=== PATIENT | female | born 1970 | race Caucasian/White ===

== ENCOUNTER 2019-01-28 22:18 | Emergency (ER) | payer OTHER ==
[~2019-01-28] VITALS: Ht 157.5 cm; Wt 75.7 kg
[2019-01-28 22:24] VITALS: Ht 157.5 cm; Wt 75.7 kg
[2019-01-29 00:01] VITALS: BP 120/69
== END 2019-01-29 00:01 | disposition home or self-care (01) ==
LOC: ED 22:18
DX: G43.909 Migraine, unspecified, not intractable, without status migrainosus (principal); F32.9 Major depressive disorder, single episode, unspecified; I10 Essential (primary) hypertension; E11.9 Type 2 diabetes mellitus without complications; Z79.84 Long term (current) use of oral hypoglycemic drugs
CPT/HCPCS: J1885; J2765

== ENCOUNTER 2019-08-09 18:05 | Emergency (ER) | payer OTHER ==
[~2019-08-09] VITALS: Ht 154.9 cm; Wt 70.8 kg
[2019-08-09 18:16] VITALS: Ht 154.9 cm; Wt 70.8 kg
[2019-08-09 19:10] LABS: UA SPECIFIC GRAVITY 1.025 (1.005-1.035); microscopic required? YES; urine erythrocyte 3+ (NEGATIVE)
[2019-08-09 19:12] LABS: BASOPHIL % 0.1 % (0-2); PLATELET COUNT 206 x10^3mcL (130-400); RED CELL DISTRIBUTION WIDTH 13.9 % (11.5-14.5)
[2019-08-09 19:22] LABS: CALCIUM 7.8 mg/dL (8.5-10.1); CARBON DIOXIDE 19.5 mmol/L (21-32); CHLORIDE SERUM 93 mmol/L (98-107); CREATININE SERUM 1.5 mg/dL (0.6-1.0); GFR1 39 mL/min; GLUCOSE SERUM 387 mg/dL (74-106); POTASSIUM SERUM 3.7 mmol/L (3.5-5.1); SODIUM SERUM 129 mmol/L (136-145)
[2019-08-09 19:26] LABS: ALKALINE PHOSPHATASE 96 U/L (46-116); ALT/SGPT 26 U/L (14-59); AST/SGOT 9 U/L (15-37); BILIRUBIN TOTAL 0.57 mg/dL (0.20-1.00)
[2019-08-09 19:27] LABS: ALBUMIN 2.5 g/dL (3.4-5.0)
[2019-08-09 22:28] VITALS: BP 122/73
== END 2019-08-09 22:28 | disposition home or self-care (01) ==
LOC: ED 18:05
PROVIDERS: Emergency Medicine
DX: N12 Tubulo-interstitial nephritis, not specified as acute or chronic (principal); E11.65 Type 2 diabetes mellitus with hyperglycemia; I10 Essential (primary) hypertension; F32.9 Major depressive disorder, single episode, unspecified; E11.9 Type 2 diabetes mellitus without complications
CPT/HCPCS: 82962; 87804; J0696; J1815

== ENCOUNTER 2019-09-25 22:44 | Emergency (ER) | payer OTHER ==
[~2019-09-25] VITALS: Ht 152.4 cm; Wt 68.5 kg
[2019-09-25 22:50] VITALS: Ht 152.4 cm; Wt 68.5 kg
[2019-09-25 23:55] LABS: BASOPHIL % 0.3 % (0-2); PLATELET COUNT 365 x10^3mcL (130-400); RED CELL DISTRIBUTION WIDTH 14.4 % (11.5-14.5)
[2019-09-26 00:05] LABS: ALBUMIN 3.4 g/dL (3.4-5.0); ALKALINE PHOSPHATASE 76 U/L (46-116); ALT/SGPT 23 U/L (14-59); AST/SGOT 10 U/L (15-37); BILIRUBIN TOTAL 0.6 mg/dL (0.20-1.00); CALCIUM 9.3 mg/dL (8.5-10.1); CARBON DIOXIDE 28.1 mmol/L (21-32); CHLORIDE SERUM 93 mmol/L (98-107); CREATININE SERUM 0.9 mg/dL (0.6-1.0); GFR1 > 60 mL/min; GLUCOSE SERUM 245 mg/dL (74-106); LIPASE 164 IU/L (73-393); POTASSIUM SERUM 3.3 mmol/L (3.5-5.1); SODIUM SERUM 127 mmol/L (136-145); TOTAL PROTEIN, SERUM 8.8 g/dL (6.4-8.2)
[2019-09-26 03:26] VITALS: BP 102/64
== END 2019-09-26 03:26 | disposition home or self-care (01) ==
LOC: ED 22:44
PROVIDERS: Emergency Medicine
DX: N10 Acute pyelonephritis (principal); E11.9 Type 2 diabetes mellitus without complications; I10 Essential (primary) hypertension
CPT/HCPCS: 87804; J1885; J2270; J2543; J7030